=== PATIENT | male | born 1955 | race Caucasian/White ===

== ENCOUNTER 2017-02-13 16:17 | Inpatient (IN) | payer BC, OTHER ==
[~2017-02-13] VITALS: Ht 188 cm; Wt 135.8 kg
[2017-02-13 19:15] VITALS: BP 117/65
[2017-02-13] MEDS ORDERED: DOCUSATE 100 MG CAPSULE PO PRN (19:30)
[2017-02-13] MEDS ORDERED: hydrALAzine 20 MG/ML, 1ML IVPush PRN (19:30)
[2017-02-13] MEDS ORDERED: TRAZODONE 50MG TABLET PO PRN (19:30)
[2017-02-13] MEDS ORDERED: POLYETHYLENE GLYCOL 17 GM PACKET PO PRN (19:30)
[2017-02-13] MEDS ORDERED: BISACODYL 10 MG SUPP PR PRN (19:30)
[2017-02-13] MEDS ORDERED: PLEASE ENTER HEIGHT AND WEIGHT MC SCH (20:00)
[2017-02-13] MEDS ORDERED: PLEASE ENTER ALLERGIES MC SCH ×2 (20:00)
[2017-02-13 20:19] LABS: ASPARTATE AMINO TRANSFERASE 84 U/L (15-37); BLOOD UREA NITROGEN 32 mg/dL (7-18)
[2017-02-13] MEDS: INSULIN ASPART 100 UNITS/ML, PEN SQ-INSULIN SCH (21:00)
[2017-02-13] MEDS: INSULIN NPH HUMAN 100 UNIT/ML, 3ML VIAL SQ-INSULIN SCH (21:00)
[2017-02-13 21:13] LABS: ABG COLLECTION SITE LEFT RADIAL; COLLATERAL CIRCULATION TESTING NORMAL
[2017-02-13] MEDS: CEFUROXIME 1.5 GM in SODIUM CHLORIDE 0.9% 50 ML IV SCH (22:29)
[2017-02-13] MEDS: ATORVASTATIN 80 MG TABLET PO SCH (22:29)
[2017-02-13] MEDS ORDERED: LORazepam 2 MG/ML, 1ML IVPush PRN (22:30)
[2017-02-14 00:24] VITALS: BP 117/65
[2017-02-14] MEDS: ACETAMINOPHEN 325 MG TABLET PO PRN ×2 (01:00→16:59)
[2017-02-14 04:00] VITALS: BP 129/65
[2017-02-14] MEDS: MORPHINE SULFATE 4 MG/ML, 1ML IVPush PRN ×2 (04:38→21:41)
[2017-02-14] MEDS: CEFUROXIME 1.5 GM in SODIUM CHLORIDE 0.9% 50 ML IV SCH ×3 (06:29→20:42)
[2017-02-14] MEDS: INSULIN ASPART 100 UNITS/ML, PEN SQ-INSULIN SCH ×4 (06:29→20:48)
[2017-02-14] MEDS: LEVOTHYROXINE 100 MCG TABLET PO SCH (06:33)
[2017-02-14 06:56] LABS: BLOOD UREA NITROGEN 29 mg/dL (7-18)
[2017-02-14] MEDS: INSULIN NPH HUMAN 100 UNIT/ML, 3ML VIAL SQ-INSULIN SCH ×2 (09:00→20:45)
[2017-02-14] MEDS: DIGOXIN 0.125 MG TABLET PO SCH (10:03)
[2017-02-14] MEDS: ATORVASTATIN 80 MG TABLET PO SCH (20:42)
[2017-02-15 04:32] LABS: ASPARTATE AMINO TRANSFERASE 60 U/L (15-37); BLOOD UREA NITROGEN 27 mg/dL (7-18)
[2017-02-15 06:00] LABS: DIFF TOTAL CELLS COUNTED 100 CELL DIFF
[2017-02-15 06:04] LABS: ANISOCYTOSIS 1+; POLYCHROMASIA 2+; VERIFY COUNTS? YES
[2017-02-15] MEDS: CEFUROXIME 1.5 GM in SODIUM CHLORIDE 0.9% 50 ML IV SCH ×3 (06:11→21:32)
[2017-02-15] MEDS: INSULIN ASPART 100 UNITS/ML, PEN SQ-INSULIN SCH ×4 (07:00→21:30)
[2017-02-15] MEDS: LEVOTHYROXINE 100 MCG TABLET PO SCH (07:26)
[2017-02-15] MEDS: MORPHINE SULFATE 4 MG/ML, 1ML IVPush PRN (07:27)
[2017-02-15] MEDS: INSULIN NPH HUMAN 100 UNIT/ML, 3ML VIAL SQ-INSULIN SCH ×3 (09:00→21:32)
[2017-02-15 09:24] LABS: ABG COLLECTION SITE LEFT RADIAL; COLLATERAL CIRCULATION TESTING NORMAL; FIO2 40 %
[2017-02-15] MEDS: ATORVASTATIN 80 MG TABLET PO SCH (21:32)
[2017-02-16] MEDS ORDERED: DEXTROSE 50%, 50ML VIAL ONE (04:45)
[2017-02-16] MEDS ORDERED: DEXTROSE 50%, 50ML SYRINGE IVPush ONE (05:00)
[2017-02-16] MEDS: INSULIN ASPART 100 UNITS/ML, PEN SQ-INSULIN SCH ×2 (05:00→11:31)
[2017-02-16 05:11] LABS: ASPARTATE AMINO TRANSFERASE 53 U/L (15-37); BLOOD UREA NITROGEN 24 mg/dL (7-18)
[2017-02-16 05:54] LABS: ANISOCYTOSIS 1+; POLYCHROMASIA 2+
[2017-02-16] MEDS: CEFUROXIME 1.5 GM in SODIUM CHLORIDE 0.9% 50 ML IV SCH (05:56)
[2017-02-16] MEDS ORDERED: LEVOTHYROXINE 100 MCG TABLET PO SCH (06:00)
[2017-02-16] MEDS: INSULIN NPH HUMAN 100 UNIT/ML, 3ML VIAL SQ-INSULIN SCH (09:00)
[2017-02-16] MEDS: DIGOXIN 0.125 MG TABLET PO SCH (09:23)
[2017-02-16] MEDS ORDERED: DOCU-30 PO (10:41)
[2017-02-16] MEDS ORDERED: ACET325T14 PO (10:41)
[2017-02-16] MEDS ORDERED: POLY17PO5 PO (10:41)
[2017-02-16] MEDS ORDERED: ATOR80TA75 PO (10:41)
[2017-02-16] MEDS ORDERED: DIGO125T PO (10:41)
[2017-02-16] MEDS ORDERED: LEVO100T PO (10:41)
[2017-02-16] MEDS ORDERED: LORA2VIA4 IVPush (10:41)
[2017-02-16] MEDS ORDERED: HYDR20VI3 IVPush (10:41)
[2017-02-16] MEDS ORDERED: INSU100I18 SQ-INSULIN (10:41)
[2017-02-16] MEDS ORDERED: TRAZ50TA18 PO (10:41)
[2017-02-16] MEDS ORDERED: BISA10SU65 PR (10:41)
[2017-02-16] MEDS ORDERED: MORP4VIA IVPush (10:41)
[2017-02-16] MEDS ORDERED: NPH,100V SQ-INSULIN (10:43)
[2017-02-16] MEDS ORDERED: CEFU1.5V IVPB (11:16)
[2017-02-16] MEDS ORDERED: INSULIN NPH HUMAN 100 UNIT/ML, 3ML VIAL SQ-INSULIN SCH (21:00)
== END 2017-02-16 12:20 | DRG 871 ==
LOC: CCU 18:52
PROVIDERS: ADMIT Hospitalist; ATTEND Hospitalist
PROC: 5A1945Z Respiratory Ventilation, 24-96 Consecutive Hours (ICD-10-PCS; 2017-02-13)
PROC: 02HV33Z Insertion of Infusion Device into Superior Vena Cava, Percutaneous Approach (ICD-10-PCS; principal; 2017-02-15)
PROC: B548ZZA Ultrasonography of Superior Vena Cava, Guidance (ICD-10-PCS; 2017-02-15)
DX: A41.01 Sepsis due to Methicillin susceptible Staphylococcus aureus (principal); R65.21 Severe sepsis with septic shock; I33.0 Acute and subacute infective endocarditis; I50.23 Acute on chronic systolic (congestive) heart failure; J96.90 Respiratory failure, unspecified, unspecified whether with hypoxia or hypercapnia; I21.4 Non-ST elevation (NSTEMI) myocardial infarction; J18.9 Pneumonia, unspecified organism; N17.9 Acute kidney failure, unspecified; E87.0 Hyperosmolality and hypernatremia; Z99.11 Dependence on respirator [ventilator] status; I11.0 Hypertensive heart disease with heart failure; I48.91 Unspecified atrial fibrillation; E11.65 Type 2 diabetes mellitus with hyperglycemia; E11.40 Type 2 diabetes mellitus with diabetic neuropathy, unspecified; E11.649 Type 2 diabetes mellitus with hypoglycemia without coma; E78.5 Hyperlipidemia, unspecified; E03.9 Hypothyroidism, unspecified; D50.0 Iron deficiency anemia secondary to blood loss (chronic); D53.9 Nutritional anemia, unspecified; E11.621 Type 2 diabetes mellitus with foot ulcer; L97.509 Non-pressure chronic ulcer of other part of unspecified foot with unspecified severity; F12.90 Cannabis use, unspecified, uncomplicated; I35.8 Other nonrheumatic aortic valve disorders; I83.90 Asymptomatic varicose veins of unspecified lower extremity; Z79.4 Long term (current) use of insulin; Z93.0 Tracheostomy status; I25.2 Old myocardial infarction; Z87.891 Personal history of nicotine dependence
CPT/HCPCS: 36415; 36569; 36600; 71010; 76937; 77001; 80048; 80053; 80162; 81001; 82803; 82962; 83036; 83735; 84439; 84443; 85014; 85018; 85025; 85610; 85651; 86140; 87040; 87070; 87081; 87086; 87106; 87205; 93005; 94002; 94003; J0697; J1815; C1751; J2060

== ENCOUNTER 2018-05-13 12:18 | Inpatient (IN) | payer OTHER ==
[~2018-05-13] VITALS: Ht 185.4 cm; Wt 123.3 kg
[2018-05-13] MEDS: ALBUTEROL SULFATE 2.5 MG/3 ML NEB SCH ×2 (00:20→20:40)
[~2018-05-13 12:18] MED LIST: ACET325T14 PO; ATOR-2 PO; BISA10SU65 PR; CEFU1.5V IVPB; DIGO125T PO; DOCU-131 PO; HYDR20VI3 IVPush; INSU100I18 SQ-INSULIN; LEVO100T PO; LORA2VIA6 IVPush; MORP4VIA IVPush; NPH,100V SQ-INSULIN; POLY17PO5 PO; TRAZ-136 PO
[2018-05-13 16:15] VITALS: BP 108/64
[2018-05-13] MEDS ORDERED: ASPI-621 PO (17:38)
[2018-05-13] MEDS ORDERED: INSU100V8 SQ (17:38)
[2018-05-13] MEDS ORDERED: CARV6.252 PO (17:38)
[2018-05-13] MEDS ORDERED: LEVO200T PO (17:38)
[2018-05-13] MEDS ORDERED: INSU100V5 SQ-INSULIN (17:38)
[2018-05-13] MEDS ORDERED: DABI150C PO (17:38)
[2018-05-13] MEDS ORDERED: ONDA4TAB13 SL (17:38)
[2018-05-13] MEDS ORDERED: FURO40SO5 IV (17:38)
[2018-05-13] MEDS ORDERED: MERO500P IV (17:38)
[2018-05-13] MEDS ORDERED: LEVA0.6320 NEB (17:38)
[2018-05-13] MEDS ORDERED: ACET325T14 PO (17:42)
[2018-05-13] MEDS ORDERED: ATOR-2 PO (17:42)
[2018-05-13] MEDS ORDERED: TEMPLATE NON-FORMULARY MED. (Ondansetron** (Ondansetron Odt**) 4 MG) SL SCH (18:30)
[2018-05-13] MEDS ORDERED: MEROPENEM IV SCH (18:30)
[2018-05-13] MEDS ORDERED: SODIUM CHLORIDE IV SCH (18:30)
[2018-05-13] MEDS ORDERED: ACETAMINOPHEN 325 MG TABLET PO PRN (18:30)
[2018-05-13] MEDS ORDERED: DOCUSATE 100 MG CAPSULE PO PRN (18:30)
[2018-05-13] MEDS ORDERED: [UNRECOGNIZED DRUG - OTHER] IV SCH (18:30)
[2018-05-13] MEDS ORDERED: ONDANSETRON ODT 4 MG PO PRN (18:30)
[2018-05-13] MEDS ORDERED: hydrALAzine 20 MG/ML, 1ML IVPush PRN (18:30)
[2018-05-13 19:46] VITALS: BP 107/70
[2018-05-13] MEDS: FUROSEMIDE 40 MG/4 ML IV SCH (20:32)
[2018-05-13] MEDS: CARVEDILOL 6.25 MG TABLET PO SCH (20:33)
[2018-05-13] MEDS: INSULIN GLARGINE 100 UNITS/ML, PEN SQ-INSULIN SCH (20:39)
[2018-05-13] MEDS ORDERED: ATORVASTATIN 80 MG TABLET PO SCH (21:00)
[2018-05-13] MEDS: INSULIN REGULAR 100 UNITS/ML, 3ML VIAL SQ-INSULIN SCH (21:12)
[2018-05-13] MEDS: MEROPENEM 500 MG in SODIUM CHLORIDE 0.9% 100 ML IV SCH (22:11)
[2018-05-13 23:51] VITALS: BP 102/72
[2018-05-14] MEDS: ALBUTEROL SULFATE 2.5 MG/3 ML NEB SCH ×6 (00:20→22:26)
[2018-05-14 03:13] LABS: BASOPHILS # (AUTO) 0.09 x10^3/uL (0-0.1); BASOPHILS % (AUTO) 1 % (0-1); EOSINOPHILS # (AUTO) 0.25 x10^3/uL (0-0.4); EOSINOPHILS % (AUTO) 3 % (1-7); LYMPHOCYTES # (AUTO) 1.79 x10^3/uL (1-3.4); LYMPHOCYTES % (AUTO) 19 % (22-44); MD NO; MEAN CORPUSCULAR HEMOGLOBIN 30.1 pg (27.5-34.5); MEAN CORPUSCULAR HGB CONC 32.3 g/dL (33.2-36.2); MEAN CORPUSCULAR VOLUME 93.5 fL (81-97); MEAN PLATELET VOLUME 8.7 fL (7.4-10.4); MONOCYTES # (AUTO) 0.73 x10^3/uL (0.2-0.8); MONOCYTES % (AUTO) 8 % (2-9); NEUTROPHILS # (AUTO) 6.66 x10^3/uL (1.8-6.8); NEUTROPHILS % (AUTO) 70 % (42-75); PLATELET COUNT 253 x10^3/uL (130-400); RED BLOOD COUNT 5.06 x10^6/uL (4.38-5.82); RED CELL DISTRIBUTION WIDTH 17.5 % (9.4-14.8)
[2018-05-14 03:21] LABS: ANION GAP 7 mmol/L (5-15); CALCIUM 8.2 mg/dL (8.5-10.1); CHLORIDE 102 mmol/L (98-107); CREATININE 1.03 mg/dL (0.7-1.3)
[2018-05-14] MEDS: FUROSEMIDE 40 MG/4 ML IV SCH ×2 (04:23→16:27)
[2018-05-14] MEDS: MEROPENEM 500 MG in SODIUM CHLORIDE 0.9% 100 ML IV SCH (06:14)
[2018-05-14] MEDS: INSULIN REGULAR 100 UNITS/ML, 3ML VIAL SQ-INSULIN SCH ×4 (07:00→20:16)
[2018-05-14] MEDS: LEVOTHYROXINE 200 MCG TABLET PO SCH (07:02)
[2018-05-14 07:38] VITALS: BP 112/74
[2018-05-14] MEDS: ASPIRIN 81 MG TABLET EC PO SCH (08:16)
[2018-05-14] MEDS: CARVEDILOL 6.25 MG TABLET PO SCH ×2 (08:17→20:07)
[2018-05-14] MEDS ORDERED: DABIGATRAN 150 MG CAPSULE PO SCH (09:00)
[2018-05-14 12:13] VITALS: BP 107/73
[2018-05-14] MEDS: ERTAPENEM 1 GM in SODIUM CHLORIDE 0.9% 50 ML IV SCH (16:37)
[2018-05-14] MEDS: DAPTOMYCIN 700 MG in SODIUM CHLORIDE 0.9% 100 ML IV SCH (17:23)
[2018-05-14 20:04] VITALS: BP 100/63
[2018-05-14] MEDS: DABIGATRAN 150 MG CAPSULE PO SCH (20:06)
[2018-05-14] MEDS: INSULIN GLARGINE 100 UNITS/ML, PEN SQ-INSULIN SCH (20:17)
[2018-05-14 23:10] VITALS: BP 108/70
[2018-05-15 04:30] VITALS: BP 112/74
[2018-05-15 05:30] LABS: HCT (SEDRATE) 48.7 % (39.2-51.8)
[2018-05-15 05:33] LABS: BASOPHILS # (AUTO) 0.05 x10^3/uL (0-0.1); BASOPHILS % (AUTO) 1 % (0-1); EOSINOPHILS # (AUTO) 0.29 x10^3/uL (0-0.4); EOSINOPHILS % (AUTO) 3 % (1-7); LYMPHOCYTES # (AUTO) 1.91 x10^3/uL (1-3.4); LYMPHOCYTES % (AUTO) 20 % (22-44); MD NO; MEAN CORPUSCULAR HEMOGLOBIN 29.9 pg (27.5-34.5); MEAN CORPUSCULAR HGB CONC 32.1 g/dL (33.2-36.2); MEAN CORPUSCULAR VOLUME 93.4 fL (81-97); MEAN PLATELET VOLUME 8.9 fL (7.4-10.4); MONOCYTES # (AUTO) 0.77 x10^3/uL (0.2-0.8); MONOCYTES % (AUTO) 8 % (2-9); NEUTROPHILS # (AUTO) 6.45 x10^3/uL (1.8-6.8); NEUTROPHILS % (AUTO) 68 % (42-75); PLATELET COUNT 257 x10^3/uL (130-400); RED BLOOD COUNT 5.21 x10^6/uL (4.38-5.82); RED CELL DISTRIBUTION WIDTH 17.5 % (9.4-14.8)
[2018-05-15] MEDS: FUROSEMIDE 40 MG/4 ML IV SCH ×2 (05:34→18:34)
[2018-05-15] MEDS: DABIGATRAN 150 MG CAPSULE PO SCH ×2 (05:34→18:34)
[2018-05-15] MEDS: LEVOTHYROXINE 200 MCG TABLET PO SCH (05:34)
[2018-05-15 05:37] LABS: ALANINE AMINOTRANSFERASE 52 U/L (12-78); ALBUMIN 2.5 g/dL (3.4-5.0); ANION GAP 5 mmol/L (5-15); CALCIUM 8.3 mg/dL (8.5-10.1); CHLORIDE 103 mmol/L (98-107); CREATININE 1.13 mg/dL (0.7-1.3)
[2018-05-15 05:49] LABS: ALKALINE PHOSPHATASE 107 U/L (45-117); BILIRUBIN,TOTAL 0.4 mg/dL (0.2-1.0); TOTAL PROTEIN 7.3 g/dL (6.4-8.2)
[2018-05-15] MEDS: INSULIN REGULAR 100 UNITS/ML, 3ML VIAL SQ-INSULIN SCH ×4 (07:00→21:21)
[2018-05-15] MEDS: ALBUTEROL SULFATE 2.5 MG/3 ML NEB SCH ×4 (07:00→20:39)
[2018-05-15 08:00] VITALS: BP 116/79
[2018-05-15] MEDS: ASPIRIN 81 MG TABLET EC PO SCH (10:01)
[2018-05-15] MEDS: CARVEDILOL 6.25 MG TABLET PO SCH ×2 (10:01→21:21)
[2018-05-15 13:05] VITALS: BP 111/74
[2018-05-15] MEDS: ERTAPENEM 1 GM in SODIUM CHLORIDE 0.9% 50 ML IV SCH (17:35)
[2018-05-15] MEDS: DAPTOMYCIN 700 MG in SODIUM CHLORIDE 0.9% 100 ML IV SCH (19:21)
[2018-05-15 20:33] VITALS: BP 113/73
[2018-05-15] MEDS: INSULIN GLARGINE 100 UNITS/ML, PEN SQ-INSULIN SCH (21:22)
[2018-05-16 01:02] VITALS: BP 116/85
[2018-05-16 04:28] LABS: ALBUMIN 2.4 g/dL (3.4-5.0); ANION GAP 6 mmol/L (5-15); CALCIUM 8.2 mg/dL (8.5-10.1); CHLORIDE 102 mmol/L (98-107); CREATININE 0.83 mg/dL (0.7-1.3)
[2018-05-16] MEDS: FUROSEMIDE 40 MG/4 ML IV SCH (05:43)
[2018-05-16] MEDS: DABIGATRAN 150 MG CAPSULE PO SCH ×2 (05:43→18:34)
[2018-05-16] MEDS: LEVOTHYROXINE 200 MCG TABLET PO SCH (05:43)
[2018-05-16 07:00] VITALS: BP 113/77
[2018-05-16] MEDS: ALBUTEROL SULFATE 2.5 MG/3 ML NEB SCH ×4 (07:50→19:40)
[2018-05-16] MEDS: INSULIN REGULAR 100 UNITS/ML, 3ML VIAL SQ-INSULIN SCH ×4 (07:56→20:36)
[2018-05-16] MEDS: CARVEDILOL 6.25 MG TABLET PO SCH ×3 (09:20→22:48)
[2018-05-16] MEDS: ASPIRIN 81 MG TABLET EC PO SCH (09:20)
[2018-05-16] MEDS: FUROSEMIDE 80 MG TABLET PO SCH (09:21)
[2018-05-16 15:20] VITALS: BP 104/70
[2018-05-16] MEDS: ERTAPENEM 1 GM in SODIUM CHLORIDE 0.9% 50 ML IV SCH (15:57)
[2018-05-16] MEDS: INSULIN LISPRO 100 UNITS/ML, PEN SQ-INSULIN SCH (17:48)
[2018-05-16] MEDS: FUROSEMIDE 40 MG TABLET PO SCH (17:49)
[2018-05-16] MEDS: DAPTOMYCIN 700 MG in SODIUM CHLORIDE 0.9% 100 ML IV SCH (18:34)
[2018-05-16 20:05] VITALS: BP 93/62
[2018-05-16] MEDS: INSULIN GLARGINE 100 UNITS/ML, PEN SQ-INSULIN SCH (20:36)
[2018-05-16 22:49] VITALS: BP 111/70
[2018-05-17 01:13] VITALS: BP 113/70
[2018-05-17 05:20] VITALS: BP 97/68
[2018-05-17] MEDS: LEVOTHYROXINE 200 MCG TABLET PO SCH (05:23)
[2018-05-17] MEDS: DABIGATRAN 150 MG CAPSULE PO SCH ×2 (05:24→18:14)
[2018-05-17] MEDS: CARVEDILOL 6.25 MG TABLET PO SCH (05:24)
[2018-05-17] MEDS: ALBUTEROL SULFATE 2.5 MG/3 ML NEB SCH ×3 (07:30→14:17)
[2018-05-17 08:05] VITALS: BP 94/61
[2018-05-17] MEDS: LOSARTAN 25MG TABLET PO SCH (09:00)
[2018-05-17] MEDS: SPIRONOLACTONE 25 MG TABLET PO SCH (09:07)
[2018-05-17] MEDS: INSULIN REGULAR 100 UNITS/ML, 3ML VIAL SQ-INSULIN SCH ×4 (09:07→21:00)
[2018-05-17] MEDS: FUROSEMIDE 80 MG TABLET PO SCH (09:07)
[2018-05-17] MEDS: INSULIN LISPRO 100 UNITS/ML, PEN SQ-INSULIN SCH ×3 (09:31→17:00)
[2018-05-17 14:30] VITALS: BP 97/63
[2018-05-17] MEDS: CARVEDILOL 3.125 MG TABLET PO SCH ×2 (14:50→21:37)
[2018-05-17] MEDS ORDERED: ALBUTEROL SULFATE 2.5 MG/3 ML NEB PRN (15:00)
[2018-05-17] MEDS: ERTAPENEM 1 GM in SODIUM CHLORIDE 0.9% 50 ML IV SCH (16:59)
[2018-05-17] MEDS: FUROSEMIDE 40 MG TABLET PO SCH (17:00)
[2018-05-17] MEDS: DAPTOMYCIN 700 MG in SODIUM CHLORIDE 0.9% 100 ML IV SCH (19:35)
[2018-05-17] MEDS: INSULIN GLARGINE 100 UNITS/ML, PEN SQ-INSULIN SCH (21:36)
[2018-05-17 21:38] VITALS: BP 96/62
[2018-05-18 02:00] VITALS: BP 100/64
[2018-05-18 05:28] VITALS: BP 98/66
[2018-05-18] MEDS: LEVOTHYROXINE 75 MCG TABLET PO SCH (05:30)
[2018-05-18] MEDS: CARVEDILOL 3.125 MG TABLET PO SCH ×2 (05:30→20:47)
[2018-05-18] MEDS: DABIGATRAN 150 MG CAPSULE PO SCH ×2 (05:30→17:42)
[2018-05-18 06:35] LABS: ALBUMIN 2.6 g/dL (3.4-5.0); ANION GAP 6 mmol/L (5-15); CALCIUM 8.2 mg/dL (8.5-10.1); CHLORIDE 102 mmol/L (98-107); CREATININE 0.91 mg/dL (0.7-1.3)
[2018-05-18] MEDS: INSULIN REGULAR 100 UNITS/ML, 3ML VIAL SQ-INSULIN SCH ×4 (07:00→20:51)
[2018-05-18 07:33] VITALS: BP 99/66
[2018-05-18] MEDS: SPIRONOLACTONE 25 MG TABLET PO SCH (08:49)
[2018-05-18] MEDS: FUROSEMIDE 80 MG TABLET PO SCH (08:49)
[2018-05-18] MEDS: INSULIN LISPRO 100 UNITS/ML, PEN SQ-INSULIN SCH ×3 (08:50→16:27)
[2018-05-18] MEDS: LOSARTAN 25MG TABLET PO SCH (08:50)
[2018-05-18] MEDS ORDERED: CARVEDILOL 3.125 MG TABLET PO ONE (09:00)
[2018-05-18 12:31] VITALS: BP 102/66
[2018-05-18] MEDS: FUROSEMIDE 40 MG TABLET PO SCH (16:27)
[2018-05-18] MEDS: ERTAPENEM 1 GM in SODIUM CHLORIDE 0.9% 50 ML IV SCH (16:46)
[2018-05-18 19:37] VITALS: BP 107/71
[2018-05-18] MEDS: DAPTOMYCIN 700 MG in SODIUM CHLORIDE 0.9% 100 ML IV SCH (19:42)
[2018-05-18 20:46] VITALS: BP 117/76
[2018-05-18] MEDS: INSULIN GLARGINE 100 UNITS/ML, PEN SQ-INSULIN SCH (20:48)
[2018-05-19 03:13] VITALS: BP 108/74
[2018-05-19] MEDS: DABIGATRAN 150 MG CAPSULE PO SCH (05:13)
[2018-05-19 05:14] LABS: ALBUMIN 2.6 g/dL (3.4-5.0); ANION GAP 4 mmol/L (5-15); CALCIUM 8.4 mg/dL (8.5-10.1); CHLORIDE 100 mmol/L (98-107); CREATININE 0.87 mg/dL (0.7-1.3)
[2018-05-19] MEDS: LEVOTHYROXINE 75 MCG TABLET PO SCH (05:14)
[2018-05-19 06:52] VITALS: BP 159/77
[2018-05-19] MEDS: INSULIN REGULAR 100 UNITS/ML, 3ML VIAL SQ-INSULIN SCH ×2 (07:00→11:55)
[2018-05-19] MEDS: INSULIN LISPRO 100 UNITS/ML, PEN SQ-INSULIN SCH ×2 (07:48→11:51)
[2018-05-19] MEDS: SPIRONOLACTONE 25 MG TABLET PO SCH (07:48)
[2018-05-19] MEDS: LOSARTAN 25MG TABLET PO SCH (07:49)
[2018-05-19] MEDS: CARVEDILOL 3.125 MG TABLET PO SCH (07:49)
[2018-05-19] MEDS: FUROSEMIDE 80 MG TABLET PO SCH (07:49)
[2018-05-19] MEDS ORDERED: PIPERACILLIN/TAZO/PMX 4.5GM 100 ML IV SCH (10:00)
[2018-05-19 12:09] VITALS: BP 110/68
[2018-05-19] MEDS ORDERED: INSU100I11 SQ-INSULIN (13:30)
[2018-05-19] MEDS ORDERED: CARV3.1212 PO (13:30)
[2018-05-19] MEDS ORDERED: SPIR25TA PO (13:30)
[2018-05-19] MEDS ORDERED: FURO80TA3 PO (13:30)
[2018-05-19] MEDS ORDERED: LOSA25TA2 PO (13:30)
[2018-05-19] MEDS ORDERED: FURO40TA6 PO (13:30)
[2018-05-19] MEDS ORDERED: LEVO75TA PO (13:30)
== END 2018-05-19 16:51 | DRG 291 ==
LOC: 5SO 15:41 → 4WST 05-14 23:59
PROVIDERS: ADMIT Family Medicine; ATTEND Internal Medicine
PROC: 5A09357 Assistance with Respiratory Ventilation, Less than 24 Consecutive Hours, Continuous Positive Airway Pressure (ICD-10-PCS; principal; 2018-05-14)
PROC: 5A09457 Assistance with Respiratory Ventilation, 24-96 Consecutive Hours, Continuous Positive Airway Pressure (ICD-10-PCS; 2018-05-15)
PROC: 02HV33Z Insertion of Infusion Device into Superior Vena Cava, Percutaneous Approach (ICD-10-PCS; 2018-05-15)
DX: I13.0 Hypertensive heart and chronic kidney disease with heart failure and stage 1 through stage 4 chronic kidney disease, or unspecified chronic kidney disease (principal); E43 Unspecified severe protein-calorie malnutrition; I50.23 Acute on chronic systolic (congestive) heart failure; J96.10 Chronic respiratory failure, unspecified whether with hypoxia or hypercapnia; E66.2 Morbid (severe) obesity with alveolar hypoventilation; I47.2 Ventricular tachycardia; D68.59 Other primary thrombophilia; Z99.81 Dependence on supplemental oxygen; I42.9 Cardiomyopathy, unspecified; I48.2 Chronic atrial fibrillation; J44.9 Chronic obstructive pulmonary disease, unspecified; G89.29 Other chronic pain; E11.40 Type 2 diabetes mellitus with diabetic neuropathy, unspecified; E78.5 Hyperlipidemia, unspecified; E11.21 Type 2 diabetes mellitus with diabetic nephropathy; N18.3 Chronic kidney disease, stage 3 (moderate); E03.9 Hypothyroidism, unspecified; E11.65 Type 2 diabetes mellitus with hyperglycemia; I08.3 Combined rheumatic disorders of mitral, aortic and tricuspid valves; I25.10 Atherosclerotic heart disease of native coronary artery without angina pectoris; E11.22 Type 2 diabetes mellitus with diabetic chronic kidney disease; I95.9 Hypotension, unspecified; E11.51 Type 2 diabetes mellitus with diabetic peripheral angiopathy without gangrene; Z90.49 Acquired absence of other specified parts of digestive tract; Z87.891 Personal history of nicotine dependence; Z88.1 Allergy status to other antibiotic agents; Z91.14 Patient's other noncompliance with medication regimen; Z79.02 Long term (current) use of antithrombotics/antiplatelets; Z79.4 Long term (current) use of insulin; Z89.411 Acquired absence of right great toe; Z68.35 Body mass index [BMI] 35.0-35.9, adult
CPT/HCPCS: 36415; J7613; 71045; 80048; 80053; 82040; 82962; 83735; 83880; 84443; 85025; 85651; 86141; 93306; 94640; 94660; G0378; J0878; J1335; J1815; J1940; J2185; J2543